=== PATIENT | male | born 1950 | race Caucasian/White ===

== ENCOUNTER → 2023-08-21 07:55 | Outpatient (REF) | payer OTHER, SELFPAY ==
[2023-08-21 09:50] LABS: Free T4 1.47 ng/dl (0.78-2.19)
[2023-08-21 10:04] LABS: TSH 0.44 uIU/ml (0.47-4.68)
== END ==
LOC: REG 07:55
PROVIDERS: ATTENDING PHYSICIAN Internal Medicine Endocrinology, Diabetes & Metabolism; FAMILY PHYSICIAN Registered Nurse
DX: E06.3 Autoimmune thyroiditis (principal)
CPT/HCPCS: 36415; 84439; 84443

== ENCOUNTER → 2023-08-26 07:41 | Outpatient (REF) | payer OTHER, SELFPAY ==
[2023-08-26 08:12] LABS: % Basophils 1.1 % (0-2); % Eosinophils 5.6 % (0-6); % Immature Granulocytes 0.2 % (0-0.5); % Lymphocytes 16.7 % (20.5-51.1); % Monocytes 8.3 % (1.7-9.3); % Neutrophils 68.1 % (42.2-75.2); Absolute Basophils 0.1 10^3/uL (0-0.2); Absolute Eosinophils 0.3 10^3/uL (0-0.7); Absolute Monocytes 0.5 10^3/uL (0.1-0.6); Absolute Neutrophils 3.9 10^3/uL (1.4-6.5); Hematocrit 42.2 % (39.0-52.0); Mean Corp Hgb Conc. 35.5 g/dL (33.0-37.0); Mean Corpuscular Hgb 31.6 pg (27.0-31.0); Mean Corpuscular Volume 88.8 fL (80.0-94.0); Nucleated Red Blood Cells % 0 % (-); Platelet Count 235 10^3/uL (130-400); Red Blood Cell Count 4.75 10^6/uL (4.70-6.10); Red Cell Dist. Width 11.9 % (11.5-14.5); White Blood Cell Count 5.7 10^3/uL (4.8-10.8)
[2023-08-26 08:44] LABS: ALT (SGPT) 19 U/L (0-50); AST (SGOT) 20 U/L (17-59); Albumin 3.6 g/dl (3.5-5.0); Alkaline Phosphatase 52 U/L (38-126); Blood Urea Nitrogen 19 mg/dl (9-20); Calcium 9.4 mg/dl (8.4-10.2); Carbon Dioxide 23 mmol/L (22-30); Chloride 107 mmol/L (98-107); Glucose 99 mg/dl (70-99); HDL Cholesterol 60 mg/dl; LDL Cholesterol, Calculated 62 mg/dl; Potassium 4.2 mmol/L (3.5-5.1); Sodium 140 mmol/L (135-145); Total Bilirubin 1.5 mg/dl (0.2-1.3); Total Cholesterol 140 mg/dl (50-199); Total Protein 6.1 g/dl (6.3-8.2); Triglyceride 90 mg/dl (10-149); Very Low Density Lipoprotein 18 mg/dl (0-30); eGFR > 60.00
[2023-08-26 09:00] LABS: Glycohemoglobin (HgbA1c) 5.7 % (4.0-5.6)
[2023-08-26 09:22] LABS: Vitamin D, 25-OH*** 63.8 ng/mL (30-80)
[2023-08-26 09:36] LABS: TSH Reflex To Free T4 0.67 uIU/ml (0.47-4.68)
[2023-08-26 09:55] LABS: Vitamin B12 368 pg/ml (239-931)
== END ==
LOC: REG 07:41
PROVIDERS: ATTENDING PHYSICIAN Internal Medicine Endocrinology, Diabetes & Metabolism; FAMILY PHYSICIAN Registered Nurse; REFERRING PHYSICIAN Nuclear Medicine Nuclear Cardiology
DX: F03.918 Unspecified dementia, unspecified severity, with other behavioral disturbance (principal); E03.9 Hypothyroidism, unspecified; E78.2 Mixed hyperlipidemia; E55.9 Vitamin D deficiency, unspecified; R73.03 Prediabetes
CPT/HCPCS: 36415; 80053; 80061; 82306; 82607; 83036; 84443; 85025

== ENCOUNTER 2023-11-24 12:36 | Emergency (ER) | payer OTHER, SELFPAY ==
[2023-11-24 12:40] VITALS: BMI 29.1
[2023-11-24 12:41] VITALS: BP 159/80
[2023-11-24 12:57] LABS: % Basophils 0.7 % (0-2); % Eosinophils 3.3 % (0-6); % Immature Granulocytes 0.2 % (0-0.5); % Lymphocytes 18.3 % (20.5-51.1); % Monocytes 6.3 % (1.7-9.3); % Neutrophils 71.2 % (42.2-75.2); Absolute Eosinophils 0.2 10^3/uL (0-0.7); Absolute Lymphocytes 1.1 10^3/uL (1.2-3.4); Absolute Monocytes 0.4 10^3/uL (0.1-0.6); Absolute Neutrophils 4.3 10^3/uL (1.4-6.5); Hematocrit 38.9 % (39.0-52.0); Mean Corpuscular Hgb 32.1 pg (27.0-31.0); Mean Corpuscular Volume 89.2 fL (80.0-94.0); Mean Platelet Volume 8.8 fL (7.4-10.4); Nucleated Red Blood Cells % 0 % (-); Platelet Count 224 10^3/uL (130-400); Red Blood Cell Count 4.36 10^6/uL (4.70-6.10)
[2023-11-24 13:00] VITALS: BP 146/83
[2023-11-24 13:17] LABS: ALT (SGPT) 16 U/L (0-50); AST (SGOT) 18 U/L (17-59); Albumin 3.6 g/dl (3.5-5.0); Alkaline Phosphatase 60 U/L (38-126); Blood Urea Nitrogen 13 mg/dl (9-20); Calcium 8.9 mg/dl (8.4-10.2); Carbon Dioxide 27 mmol/L (22-30); Chloride 108 mmol/L (98-107); Estimated Creatinine Clearance 101 ml/min; Glucose 98 mg/dl (70-99); Potassium 3.9 mmol/L (3.5-5.1); Sodium 137 mmol/L (135-145); Total Bilirubin 1.4 mg/dl (0.2-1.3); Total Protein 6.1 g/dl (6.3-8.2); eGFR > 60.00
[2023-11-24 13:25] LABS: Troponin I < 0.012 ng/ml
--- NOTE | 2023-11-24 13:42 | ED.GENMED ---
History of Present Illness
General
Chief Complaint: Chest Pain
Source: patient, spouse and family
Time Seen by Provider: 11/24/23 13:29
Travel History
Have you had any contact with someone who has COVID-19?: No
Do you have any symptoms of coronavirus? Fever > 100 degrees, chills, cough, shortness of breath, sore throat, loss of taste or smell, muscle aches, or headache?: No
History of Present Illness
History of Present Illness:
73-year-old male with past medical history of dementia, hyperlipidemia, hypothyroidism presenting the ER via EMS with family states that after getting home from [place] patient seemed to be a little bit argumentative with family and is having a
hard time controlling the patient so she contacted EMS. stated patient had been complaining of some chest discomfort and also had mentioned a headache but states that the symptoms are now fully resolved. No medications were given prior to
arrival. Patient is unable to tell me anything about his headache or chest pain here. No known history of cardiac disease. Family is otherwise denying any recent illnesses, change in behavior or any other concerns at this time
Past History
Past History
ED Past Medical History: Hypercholesterolemia, Hypothyroidism and Other (Dementia)
ED Past Surgical History: None
Social History
Tobacco: Former smoker
Alcohol: Occasional
Drug: None
Personal:
Living: with family
Review of Systems
Review of Systems
All Other Systems: ROS reviewed and negative except as documented in HPI and ROS
Phy Exam
Physical Exam
Physical Exam:
GENERAL: Alert , in no apparent distress
EYE: conjunctiva clear
NECK: Supple
ENT: o/p clr, mmm.
CARDIAC: Regular rate and rhythm
LUNGS: Clear breath sounds bilaterally, no acute respiratory distress, no wheezes/rales/rhonchi
Abdomen: Soft, nontender, nondistended
NEUROLOGICAL: Alert and oriented
SKIN: Warm and dry, skin intact.
MUSCULOSKELETAL: well perfused.
PSYCH: Normal and appropriate interaction.
Scores
Heart Failure Risk
Heart Failure Risk Score: Not Applicable
Heart Score for Chest Pain Patients
STEMI patient?: Not applicable
Withdrawal Assessment of Alcohol
Withdrawal Assessment Completed?: Not applicable
Course
Orders/Labs/Results
Orders:
Orders
11/24/23 12:39
Electrocardiogram (*1) Urgent
Reason for Study: Chest Pain
EKG- Treatment ONCE
11/24/23 12:47
Complete Blood Count/With Diff Urgent
Comprehensive Metabolic Panel Urgent
Troponin I Urgent
11/24/23 14:51
Troponin I Urgent
Abnormal Lab Results
11/24/23
12:47
RBC 4.36 L 10^6/uL
(4.70-6.10)
Hct 38.9 L %
(39.0-52.0)
MCH 32.1 H pg
(27.0-31.0)
Absolute Lymphs (auto) 1.1 L 10^3/uL
(1.2-3.4)
Lymphocytes % 18.3 L %
(20.5-51.1)
Chloride 108 H mmol/L
(98-107)
Total Bilirubin 1.4 H mg/dl
(0.2-1.3)
Total Protein 6.1 L g/dl
(6.3-8.2)
11/24/23 12:47
11/24/23 12:47
Vital Signs
Initial and Last Documented VS:
Initial Vital Signs
Temp Pulse Resp Pulse Ox
98 F 60 14 96
11/24/23 12:40 11/24/23 12:40 11/24/23 12:40 11/24/23 12:40
Last Documented Vital Signs
Temp Pulse Resp BP Pulse Ox
98 F 59 9 155/73 97
11/24/23 12:40 11/24/23 14:45 11/24/23 14:45 11/24/23 14:00 11/24/23 14:45
MDM/Problems Addressed
Differential Diagnosis Includes:
Atypical ACS presentation, hypertension, patient and were reportedly having an argument at that time so certainly possible just a reaction from being upset over the argument
MDM/Problems Addressed:
73-year-old male with past medical history of dementia presenting emergency department for evaluation of reported transient headache and chest pain. Patient is laughing and smiling without any concerns at this time. He denies chest pain or
headache. Labs were initiated on arrival and they are all unremarkable. Troponin negative and EKG nonischemic. Given patient's past medical history of dementia and difficult time with history will obtain repeat troponin and if this is within
normal limits patient can be safely discharged home.
*Pulse Oximetry
Patient hypoxic: no
*EKG
Interpreted by ED Provider?: Yes
Comparison EKG: no changes
Heart Rate: 60
Rate: normal
Rhythm: sinus
[place]: left axis deviation
Ischemia: no ischemia
*Crusher Feeder Interpretation
Rate: normal
Rhythm: sinus
*Critical Care Note
Total Time (30-74mins, 75-104mins- exclusive of procedures): Not Applicable
Data Reviewed
Review of Other/Old Records Reveals: Labs and Records
Source: records and spouse
Patient Management
Escalation/DeEscalation of care consider admission/obs:
Repeat troponin negative. Patient remains without any concerns in ED. Stable for d/c home and outpatient follow up. Family aware of return precautions
ED Attending Note
-
Portions of this chart may have been created with voice recognition software.� Occasional wrong word or��sound alike� substitutions may have occurred due to the inherent limitations of voice recognition software.
Discharge Plan
Departure
Patient Disposition: Home (Routine Discharge)
Date of Disposition: 11/24/23
Time of Disposition: 15:36
Patient with high blood pressure during this ER visit?: Yes
Discharge Problem:
Chest pain
Instructions: Dementia ED
Prescriptions:
No Action
levothyroxine 150 MCG tablet
150 mcg PO DAILY
cholecalciferol (vitamin D3) [Vitamin D3] 2,000 UNIT capsule
2,000 unit PO DAILY
Simvastatin
1 tab PO HS
Referrals:
Darvin Ho CRNP [Family Provider] -
Interventions
Interventions:
*Risk Screen - Suicide Last Done: 11/24/23 12:40
*General Assessment Last Done: 11/24/23 12:40
*Neglect/Abuse Screening Last Done: 11/24/23 12:40
ED- Fall Risk Assessment Last Done: 11/24/23 12:44
*ED COVID-19 Vaccine History Last Done: 11/24/23 12:40
ED- Cardiac Assessment Last Done: 11/24/23 12:44
Discharge Date and Time
Print Language: HUNGARIAN
[2023-11-24 14:00] VITALS: BP 155/73
[2023-11-24 15:00] VITALS: BP 151/71
[2023-11-24 15:32] LABS: Troponin I < 0.012 ng/ml
== END 2023-11-24 15:56 | disposition home or self-care (01) ==
LOC: EMR 12:36
PROVIDERS: Physician Assistant Medical; EMERGENCY PHYSICIAN Emergency Medicine; FAMILY PHYSICIAN Registered Nurse
DX: R07.89 Other chest pain (principal); R51.9 Headache, unspecified; R03.0 Elevated blood-pressure reading, without diagnosis of hypertension; F03.90 Unspecified dementia, unspecified severity, without behavioral disturbance, psychotic disturbance, mood disturbance, and anxiety; E78.00 Pure hypercholesterolemia, unspecified; E03.9 Hypothyroidism, unspecified; Z87.891 Personal history of nicotine dependence
CPT/HCPCS: 99283; 80053; 84484; 85025; 93005

== ENCOUNTER 2024-01-31 11:46 | Emergency (ER) | payer OTHER, SELFPAY ==
[2024-01-31 11:50] VITALS: BP 153/79; BMI 30.4
--- NOTE | 2024-01-31 13:21 | ED.GENMED ---
History of Present Illness
General
Chief Complaint: Crisis Evaluation
Source: patient and family
Exam Limitations: dementia
Time Seen by Provider: 01/31/24 12:34
Nursing documentation reviewed up to this point in time: agreed with
History of Present Illness
History of Present Illness:
73 yo male presents to the emergency department after arrival from home via EMS for psychiatric evaluation. Police are investigating him as a suspect in his 's this morning. His son and daughter are present. When questioned about his
medications he does not recall them.
Past History
Past History
ED Past Medical History: Hypercholesterolemia, Hypothyroidism and Other (Dementia)
ED Past Surgical History: None
Social History
Tobacco: Former smoker
Alcohol: Occasional
Drug: None
Personal:
Living: with family
Review of Systems
Review of Systems
Allergies reviewed?: Yes
All Other Systems: Not applicable
Phy Exam
Physical Exam
Physical Exam:
Physical Exam
General: no apparent distress, not acutely ill
Neck: supple. no meningeal signs. normal posterior pharynx
Heart: s1/s2 regular rate and rhythm, no murmur. equal radial
pulses.
HEENT: Pupils equal round reactive to light, EOMI
Lungs: no acute respiratory distress. clear bilaterally
Abdomen: normal bowel sounds. not tender. no CVAT
Neuro: alert and oriented to person but not place or year. no focal neurological deficits cranial nerves II through XII intact
Skin: no rash
Psychiatric: well kept. interactive and cooperative
Extremities: no edema. no calf tenderness. negative homans. good distal pulses
Course
Orders/Labs/Results
Orders:
Orders
01/31/24 13:23
Case Management Consult ONCE
Case Management Consult: Residential Placement
PSYCHIATRY CONSULT Urgent
Consulting Provider: Pat Little
Was physician already notified: Yes
Reason for consult: suspect in 's , dementia, evaluate decision making
Crisis Consult Urgent
Reason for Consult: unable to care for self, suspect in 's
01/31/24 13:37
Complete Blood Count/With Diff Urgent
Comprehensive Metabolic Panel Urgent
TSH Urgent
Comment: TSH ADDED ON BY FLOOR 3:15PM 01-31-24
01/31/24 15:08
TSH Routine
01/31/24 15:13
Add On- LAB Urgent
Tests Added?: TSH routine
Abnormal Lab Results
01/31/24
13:37
RBC 4.23 L 10^6/uL
(4.70-6.10)
Hct 37.5 L %
(39.0-52.0)
MCH 32.2 H pg
(27.0-31.0)
Absolute Lymphs (auto) 1.1 L 10^3/uL
(1.2-3.4)
Lymphocytes % 19.0 L %
(20.5-51.1)
Chloride 109 H mmol/L
(98-107)
Total Bilirubin 1.7 H mg/dl
(0.2-1.3)
01/31/24 13:37
01/31/24 13:37
Vital Signs
Initial and Last Documented VS:
Initial Vital Signs
Temp Pulse Resp BP Pulse Ox
98.4 F 51 16 153/79 98
01/31/24 11:50 01/31/24 11:50 01/31/24 11:50 01/31/24 11:50 01/31/24 11:50
Last Documented Vital Signs
Temp Pulse Resp BP Pulse Ox
98.4 F 51 16 153/79 98
01/31/24 11:50 01/31/24 11:50 01/31/24 11:50 01/31/24 11:50 01/31/24 11:50
MDM/Problems Addressed
Differential Diagnosis Includes:
Dementia
MDM/Problems Addressed:
73-year-old male with dementia, no reason for admission. Patient will be discharged home with family. Case management attempting to find placement.
Chronic conditions affecting care: Other (Dementia)
Acute Exacerbation and/or Progression of Chronic Illness: Other (Dementia)
*Pulse Oximetry
Patient hypoxic: no
*EKG
Interpreted by ED Provider?: NA
*Telephone Repairer Interpretation
Rate: Telephone Repairer- N/A
*Critical Care Note
Total Time (30-74mins, 75-104mins- exclusive of procedures): Not Applicable
Patient Management
Social determinants of health affecting care: Living situation
Discussion with other providers: Script Supervisor (Case management, psychiatry and crisis)
Escalation/DeEscalation of care consider admission/obs:
Admit not indicated
ED Attending Note
-
Portions of this chart may have been created with voice recognition software.� Occasional wrong word or��sound alike� substitutions may have occurred due to the inherent limitations of voice recognition software.
Discharge Plan
Departure
Patient Disposition: Home (Routine Discharge)
Date of Disposition: 01/31/24
Time of Disposition: 15:40
Patient with high blood pressure during this ER visit?: Yes
Condition: Good
Discharge Problem:
Encounter for medical assessment
Prescriptions:
No Action
levothyroxine 150 MCG tablet
150 mcg PO DAILY
cholecalciferol (vitamin D3) [Vitamin D3] 2,000 UNIT capsule
2,000 unit PO DAILY
Simvastatin
1 tab PO HS
Referrals:
Darvin Ho CRNP [Family Provider] - Call in 1-3 days for appt
Interventions
Interventions:
*Risk Screen - Suicide Last Done: 01/31/24 11:50
*General Assessment Last Done: 01/31/24 11:50
*Neglect/Abuse Screening Last Done: 01/31/24 11:50
ED- Fall Risk Assessment Last Done: 01/31/24 12:22
*ED COVID-19 Vaccine History Last Done: 01/31/24 11:50
ED-Psychological Assessment Last Done: 01/31/24 12:22
Discharge Date and Time
Print Language: FAROESE
[2024-01-31 13:45] LABS: % Basophils 0.7 % (0-2); % Immature Granulocytes 0.3 % (0-0.5); Absolute Eosinophils 0.2 10^3/uL (0-0.7); Absolute Lymphocytes 1.1 10^3/uL (1.2-3.4); Absolute Monocytes 0.4 10^3/uL (0.1-0.6); Absolute Neutrophils 4.1 10^3/uL (1.4-6.5); Hematocrit 37.5 % (39.0-52.0); Hemoglobin 13.6 g/dL (13.0-18.0); Mean Corp Hgb Conc. 36.3 g/dL (33.0-37.0); Mean Corpuscular Hgb 32.2 pg (27.0-31.0); Mean Corpuscular Volume 88.7 fL (80.0-94.0); Nucleated Red Blood Cells % 0 % (-); Platelet Count 206 10^3/uL (130-400); Red Blood Cell Count 4.23 10^6/uL (4.70-6.10); Red Cell Dist. Width 12.4 % (11.5-14.5)
[2024-01-31 14:08] LABS: ALT (SGPT) 12 U/L (0-50); AST (SGOT) 23 U/L (17-59); Albumin 3.9 g/dl (3.5-5.0); Alkaline Phosphatase 48 U/L (38-126); Blood Urea Nitrogen 14 mg/dl (9-20); Carbon Dioxide 24 mmol/L (22-30); Chloride 109 mmol/L (98-107); Estimated Creatinine Clearance 110 ml/min; Glucose 84 mg/dl (70-99); Sodium 139 mmol/L (135-145); Total Bilirubin 1.7 mg/dl (0.2-1.3); Total Protein 6.3 g/dl (6.3-8.2); eGFR > 60.00
--- NOTE | 2024-01-31 15:08 | CON.MD ---
Consultation - Medical
-
patient seen chart reviewed. son and daughter present at bedside. discussed w dr mcguire. the patient is a 73 year old man who has been diagnosed w dementia. he was living at home with his , the patient is extremely cognitively impaired and
could give no history. d told me that his called 911 this am and when the police arrived and were banging on the door father thought there was an intruder and initially would not let them in. was found to be . patient's children
were instructed to bring him to the ER for an evaluation. he was also seen by abatement worker who asked polilce if the patient were a suspect in 's murder but no definitive answer was forthcoming. patient's only this am . the patient
's children deny any hx of depression or anxiety but they do verify hx of dementia which was quite apparent. the patient was here in november of this year. at that time alleged that patient had been 'argumentative' and it appears that he was
discharged to home. the patient was also seen here in the er in october of 2022. he apparently was being worked up for hematuria and was seen in the er for a contusion on his wrist. again he was discharged. the patient takes no psychotropic
medications. the patient is oriented to place only. he told me it was winter and could not even guess the year. i asked how many children he had and he pointed to his two children said 'one two three four'. he was unable to tell me how many
grandhildren he had. 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
past medical hx hld hypothyroid dementia. usual meds include simvastatin and synthroid. labs appear unremarkable.
substance abuse denied
family hx non contributory
social hx resided w two kids four grands retired
mse alert but oriented only to place. patient unable to put a sentence together that was relevant. speech relatively nl rate and tone but thought content disorganized and incoherent. no overt psychosis. he was overall pleasant and calm.
insight judgment impaired
dx dementia
recommendations i don't see any acute psych or medical process here. he is not appropriate for psych admit as he is not depressed psychotic or exhibiting behavioral dyscontrol here in the ER although not clear what went on before. no psych meds
recommended at this time as there is no indication of need for acute rx. ordered tsh as he is hypothyroid
--- NOTE | 2024-01-31 15:12 | CM ---
Addendum entered by Leticia Vaughan 01/31/24 15:45:
Patient's daughter decided to take patient home.
Her number is [phone]
Address:
[address] [place] [address]
[place]
Addendum entered by Leticia Vaughan 01/31/24 15:42:
[facility] also said 'no'.
Addendum entered by Leticia Vaughan 01/31/24 15:37:
Textile Engineer's name and number:
Regino Cruz, Textile Engineer
[phone]
24 hr: [phone]
Rightfax: [phone]
Email: [email or web address]
Address:
[facility]
[address] [facility]
[place]
There is also a name written for 'Buck Platt'. No other notes added to the name.
Addendum entered by Leticia Vaughan 01/31/24 15:28:
Dr. Little from Psychiatry, stated that patient is cleared. He does not qualify for [facility]-psych.
So far, the following SNFs have said 'no' to accepting patient's referral:
1. [facility]
2. [facility]
3. [facility]
4. [place] [facility]
5. [facility]
6. [facility] [place]
7. [facility]
Original Note:
CM reviewed chart. Spoke with patient and son and daughter at bedside.
CM explained to son and daughter that because of the events that happened today, patient may possibly be a hard placement. Daughter and son were very surprised and asked CM to clarify what specifically happened today. CM asked son and daughter what
was discussed with them. They stated that 'nothing happened', besides the automatic clipper and stripper taking pictures of their fathers hands and asking a few questions. Daughter stated, 'They even told us that we could come back into the home around 2PM'.
Daughter stated that she just wasn't able to understand why her father couldn't be placed when he is a 'vulnerable man who can't care for himself. I just don't understand why he can't go.'
CM also discussed that there is not a skilled need, currently for patient, and it would have to be paid out of pocket. Daughter and son do not know what their father's financial situation because, per daughter, 'his was in control of all of
that'.
Daughter and son adamantly asked for referrals to be placed, because they do not feel their father would be safe in their home, due to them having small children in both homes.
Referrals placed in [facility].
--- NOTE | 2024-01-31 16:41 | CM ---
Addendum entered by Leticia Vaughan 01/31/24 17:38:
Halley, from [employer], who called about 14 minutes, wanted to know who is patient's POA.
Addendum entered by Leticia Vaughan 01/31/24 17:24:
Thermoforming Machine Operator [employer] Internetworking Technician called CM to clarify some details of patient's report.
Original Note:
CM made a report to [employer] about events, SNF referrals (and denials) and open murder investigation. Also shared safety concerns for patient, due to his hx of dementia.
[2024-01-31 17:53] LABS: TSH 0.97 uIU/ml (0.47-4.68)
== END 2024-01-31 16:00 | disposition home or self-care (01) ==
LOC: EMR 11:46
PROVIDERS: CONSULT PHYSICIAN Psychiatry & Neurology Psychiatry; EMERGENCY PHYSICIAN Emergency Medicine; FAMILY PHYSICIAN Registered Nurse
DX: Z02.79 Encounter for issue of other medical certificate (principal); F03.90 Unspecified dementia, unspecified severity, without behavioral disturbance, psychotic disturbance, mood disturbance, and anxiety; R03.0 Elevated blood-pressure reading, without diagnosis of hypertension; E03.9 Hypothyroidism, unspecified; E78.00 Pure hypercholesterolemia, unspecified; Z87.891 Personal history of nicotine dependence
CPT/HCPCS: 99283; 80053; 84443; 85025

== ENCOUNTER 2024-02-08 06:49 | Emergency (ER) | payer OTHER, SELFPAY ==
[2024-02-08 06:52] VITALS: BP 146/81
[2024-02-08 06:56] VITALS: BMI 29.1
[2024-02-08 06:58] LABS: Glucose - Point of Care 112 mg/dl (70-99)
--- NOTE | 2024-02-08 06:58 | ED.GENMED ---
History of Present Illness
General
Chief Complaint: Change in Mental Status
Source: patient, records, ambulance crew and police
Exam Limitations: dementia
Time Seen by Provider: 02/08/24 06:51
Nursing documentation reviewed up to this point in time: agreed with
History of Present Illness
History of Present Illness:
Patient is a 73-year-old male who presents via EMS and police accompanying them from a local prison after the patient was found in the bed of another patient and refused to get out and then became physically aggressive with staff and EMS.
Patient just arrived at the prison last night and does have a history of dementia and combativeness. Patient was seen here on the after becoming aggressive with police when they tried to get into his house after his to call 911.
Patient is was found to be at the time. Patient was evaluated psychiatrically at that time he was found to be demented but not acutely in need of psychiatric therapy. Patient was noted to be somewhat aggressive. Patient's thyroid was
checked and was normal. Patient essentially has no complaints at this time. Patient does give the history that was relayed by EMS and the police.
Past History
Past History
ED Past Medical History: Hypercholesterolemia, Hypothyroidism and Other (Dementia)
ED Past Surgical History: None
Social History
Tobacco: Former smoker
Alcohol: Occasional
Drug: None
Personal:
Living: with family
Review of Systems
Review of Systems
Unable to obtain full review of systems at this time due to: dementia
Other source history: ambulance crew
All Other Systems: Not applicable
Phy Exam
Physical Exam
Physical Exam:
Physical Exam
General: No apparent distress, alert and appropriate at this time, well nourished, well hydrated
HENT: Normocephalic, supple with no lymphadenopathy, no thyromegaly
Eyes: Clear sclera, conjuctiva without injection
Heart: Regular rhythm and rate. No S3, S4. No murmur. No NVD
Lungs: No respiratory distress, no stridor, lung sounds clear and equal bilaterally, chest wall symmetrical and nontender
Abdomen: Soft, nontender, no organomegaly, no CVA tenderness, BS good
Neuro: Alert and oriented to person, CN II - XII intact, no motor focality
Skin: Scattered superficial ecchymosis
Psychiatric: well kept. interactive and cooperative
Extremities: No edema, cyanosis, tenderness, Good and equal peripheral pulses.
Course
Orders/Labs/Results
Orders:
Orders
02/08/24 07:14
Complete Blood Count/With Diff Urgent
Comprehensive Metabolic Panel Urgent
TSH Reflex To Free T4 Urgent
02/08/24 09:28
Urinalysis Reflex To Culture Urgent
Date Specimen was Collected: 02/08/24
Time Specimen was Collected: 09:25
Urine Microscopic Reflex Cult Urgent
02/08/24 10:38
HydrOXYzine [Vistaril] 50 mg IM NOW STA
Abnormal Lab Results
02/08/24 02/08/24 02/08/24
06:56 07:14 09:28
RBC 4.28 L 10^6/uL
(4.70-6.10)
Hct 38.2 L %
(39.0-52.0)
MCH 31.8 H pg
(27.0-31.0)
Chloride 109 H mmol/L
(98-107)
Glucose 104 H mg/dl
(70-99)
Total Bilirubin 1.7 H mg/dl
(0.2-1.3)
Total Protein 6.1 L g/dl
(6.3-8.2)
Ur Occult Blood Reflex 2+ A
(Negative)
Urine RBC 7-10 A /HPF
(0-2)
POC Glucose 112 H mg/dl
(70-99)
02/08/24 07:14
02/08/24 07:14
Vital Signs
Initial and Last Documented VS:
Initial Vital Signs
Temp Pulse Resp BP Pulse Ox
98.5 F 58 18 146/81 97
02/08/24 06:52 02/08/24 06:52 02/08/24 06:52 02/08/24 06:52 02/08/24 06:52
Last Documented Vital Signs
Temp Pulse Resp BP Pulse Ox
98.5 F 63 15 149/81 97
02/08/24 06:52 02/08/24 08:15 02/08/24 08:15 02/08/24 08:00 02/08/24 08:15
*Radiology
Radiology exam reviewed: other
*Pulse Oximetry
Patient hypoxic: no
*EKG
Interpreted by ED Provider?: NA
*Tool Shaper Setup Operator Interpretation
Rate: Tool Shaper Setup Operator- N/A
*Critical Care Note
Total Time (30-74mins, 75-104mins- exclusive of procedures): Not Applicable
Update Note
Update Note:
Patient's workup is essentially negative. Patient has been placed on Zoloft since the . Find a medication that can be found on a as needed basis for agitation and possibly something better for agitation than an antidepressant.
ED Attending Note
-
Portions of this chart may have been created with voice recognition software.� Occasional wrong word or��sound alike� substitutions may have occurred due to the inherent limitations of voice recognition software.
Discharge Plan
Departure
Patient Disposition: [facility]ci/SNF
Date of Disposition: 02/08/24
Time of Disposition: 10:39
Patient with high blood pressure during this ER visit?: Yes
Condition: Fair
Covid-19: Not Applicable
Discharge Problem:
Agitation due to dementia
Instructions: Dementia (DC), BLOOD PRESSURE
Prescriptions:
New
aripiprazole [Abilify] 2 mg tablet
2 mg PO DAILY Qty: 30 0RF
No Action
levothyroxine 150 MCG tablet
150 mcg PO DAILY
cholecalciferol (vitamin D3) [Vitamin D3] 2,000 UNIT capsule
2,000 unit PO DAILY
Simvastatin
1 tab PO HS
Referrals:
Sammy Whyte I., [Family Provider] - Follow up in 2-3 days
Activity Restrictions/Additional Instructions:
Continue present medications and therapy.
Interventions
Interventions:
*Risk Screen - Suicide Last Done: 02/08/24 06:56
*General Assessment Last Done: 02/08/24 06:53
*Neglect/Abuse Screening Last Done: 02/08/24 06:56
*ED COVID-19 Vaccine History Last Done: 02/08/24 06:53
ED- Neurological Assessment Last Done: 02/08/24 06:56
Discharge Date and Time
Print Language: CITIZ[place]
[2024-02-08 07:00] VITALS: BP 134/78
[2024-02-08 07:32] LABS: % Basophils 0.8 % (0-2); % Eosinophils 5.9 % (0-6); % Immature Granulocytes 0.2 % (0-0.5); % Lymphocytes 21.9 % (20.5-51.1); % Monocytes 7.4 % (1.7-9.3); % Neutrophils 63.8 % (42.2-75.2); Absolute Basophils 0.1 10^3/uL (0-0.2); Absolute Eosinophils 0.4 10^3/uL (0-0.7); Absolute Lymphocytes 1.3 10^3/uL (1.2-3.4); Absolute Monocytes 0.4 10^3/uL (0.1-0.6); Absolute Neutrophils 3.8 10^3/uL (1.4-6.5); Hematocrit 38.2 % (39.0-52.0); Hemoglobin 13.6 g/dL (13.0-18.0); Mean Corp Hgb Conc. 35.6 g/dL (33.0-37.0); Mean Corpuscular Hgb 31.8 pg (27.0-31.0); Mean Corpuscular Volume 89.3 fL (80.0-94.0); Mean Platelet Volume 9.4 fL (7.4-10.4); Nucleated Red Blood Cells % 0 % (-); Platelet Count 227 10^3/uL (130-400); Red Blood Cell Count 4.28 10^6/uL (4.70-6.10); Red Cell Dist. Width 12.4 % (11.5-14.5)
[2024-02-08 07:38] LABS: ALT (SGPT) 16 U/L (0-50); AST (SGOT) 20 U/L (17-59); Albumin 3.8 g/dl (3.5-5.0); Alkaline Phosphatase 53 U/L (38-126); Blood Urea Nitrogen 15 mg/dl (9-20); Calcium 9.3 mg/dl (8.4-10.2); Carbon Dioxide 25 mmol/L (22-30); Chloride 109 mmol/L (98-107); Estimated Creatinine Clearance 89 ml/min; Glucose 104 mg/dl (70-99); Potassium 3.9 mmol/L (3.5-5.1); Sodium 140 mmol/L (135-145); Total Bilirubin 1.7 mg/dl (0.2-1.3); Total Protein 6.1 g/dl (6.3-8.2); eGFR > 60.00
[2024-02-08 08:00] VITALS: BP 149/81
[2024-02-08 08:09] LABS: TSH Reflex To Free T4 4.01 uIU/ml (0.47-4.68)
[2024-02-08 09:36] LABS: Urine Albumin Negative (Neg - Trace); Urine Bilirubin Negative (Negative); Urine Character Clear (Clear); Urine Color Yellow; Urine Glucose Negative (Negative); Urine Ketone Negative (Negative); Urine Leukocyte Negative (Negative); Urine Nitrite Negative (Negative); Urine Occult Blood 2+ (Negative); Urine Urobilinogen 1+ (Neg - 1+)
[2024-02-08 09:55] LABS: Urine White Cell 0-2 /HPF (0-5)
[2024-02-08] MEDS: VISTARIL 50 MG IM (10:55)
== END 2024-02-08 13:10 ==
LOC: EMR 06:49
PROVIDERS: EMERGENCY PHYSICIAN Emergency Medicine; FAMILY PHYSICIAN Internal Medicine
DX: R41.82 Altered mental status, unspecified (principal); F03.911 Unspecified dementia, unspecified severity, with agitation
CPT/HCPCS: 99285; 96372; 80053; 81003; 81015; 82962; 84443; 85025

== ENCOUNTER 2024-02-08 20:16 | Emergency (ER) | payer OTHER, SELFPAY ==
[2024-02-08] MEDS: HALDOL 5 MG IM (20:29)
[2024-02-08] MEDS: VERSED 3 MG IM (20:30)
[2024-02-08 20:49] LABS: % Basophils 0.6 % (0-2); % Eosinophils 3.1 % (0-6); % Immature Granulocytes 0.2 % (0-0.5); % Lymphocytes 17.9 % (20.5-51.1); % Monocytes 8.7 % (1.7-9.3); % Neutrophils 69.5 % (42.2-75.2); Absolute Basophils 0.1 10^3/uL (0-0.2); Absolute Eosinophils 0.3 10^3/uL (0-0.7); Absolute Lymphocytes 1.5 10^3/uL (1.2-3.4); Absolute Monocytes 0.7 10^3/uL (0.1-0.6); Absolute Neutrophils 5.9 10^3/uL (1.4-6.5); Hematocrit 39.5 % (39.0-52.0); Hemoglobin 14.1 g/dL (13.0-18.0); Mean Corp Hgb Conc. 35.7 g/dL (33.0-37.0); Mean Corpuscular Volume 89.8 fL (80.0-94.0); Mean Platelet Volume 9.3 fL (7.4-10.4); Nucleated Red Blood Cells % 0 % (-); Platelet Count 267 10^3/uL (130-400); Red Cell Dist. Width 12.5 % (11.5-14.5); White Blood Cell Count 8.5 10^3/uL (4.8-10.8)
[2024-02-08 20:55] VITALS: BP 120/60
[2024-02-08 21:17] LABS: ALT (SGPT) 17 U/L (0-50); AST (SGOT) 26 U/L (17-59); Acetaminophen < 10 ug/ml (10-30); Albumin 4.1 g/dl (3.5-5.0); Alkaline Phosphatase 56 U/L (38-126); Blood Urea Nitrogen 19 mg/dl (9-20); Calcium 9.4 mg/dl (8.4-10.2); Carbon Dioxide 28 mmol/L (22-30); Chloride 107 mmol/L (98-107); Glucose 108 mg/dl (70-99); Potassium 3.9 mmol/L (3.5-5.1); Sodium 141 mmol/L (135-145); Total Bilirubin 1.9 mg/dl (0.2-1.3); Total Protein 6.5 g/dl (6.3-8.2); eGFR > 60.00
[2024-02-08 21:19] LABS: Alcohol None Detected
[2024-02-08 21:26] LABS: Salicylate < 1.0 mg/dl (2.0-20.0)
--- NOTE | 2024-02-08 21:34 | ED.GENMED ---
History of Present Illness
General
Chief Complaint: Crisis Evaluation
Source: patient, records, ambulance crew, custodial and previous hospital records
Exam Limitations: dementia
Time Seen by Provider: 02/08/24 20:25
Nursing documentation reviewed up to this point in time: agreed with
History of Present Illness
History of Present Illness:
73-year-old male with a past medical history of hypothyroidism and dementia who presents to the emergency room from [facility] via EMS for violent behavior. This is a very challenging case as patient has significant dementia, very limited
insight and very poor historian. He is very agitated and aggressive and exhibiting violent behavior level and so history is even more so limited from him. He was seen in this emergency room 01/31/2024t that time he was referred for evaluation
after being found with his ; per EMS report there was apparently report that he may have been involved in her . He was seen by psychiatry ultimately behavior was thought to be related to his dementia and he was ultimately
discharged. He was sent back to the emergency room this morning arrived via EMS and police after he was found in bed next to a another custodial resident and refused to get out of bed. He offers no complaint this morning and was started on
Abilify and discharged back to custodial. According to custodial and EMS report this evening he became acutely aggressive at the custodial. Per EMS when they arrived on the scene he was witnessed to be following the nurses into their
private nursing station and was cornering them and punching, attacking them. EMS reported that they had to pull patient away from the nursing staff and that he began attempting to punch, spit on and kick EMS. They were able to restrain him and
brought him into the hospital.
Past History
Past History
ED Past Medical History: Hypercholesterolemia, Hypothyroidism and Other (Dementia)
ED Past Surgical History: None
Social History
Tobacco: Former smoker
Alcohol: Occasional
Drug: None
Personal:
Living: with family
Review of Systems
Review of Systems
Unable to obtain full review of systems at this time due to: dementia
All Other Systems: Not applicable
Phy Exam
Physical Exam
Physical Exam:
General: Awake, alert, oriented x 1 and acutely agitated, spitting on people and swinging at security staff�he is not redirectable
Head: Normocephalic, atraumatic
Eyes: Conjunctiva normal, pupils equal round and reactive to light bilateral
Throat: Airway intact, handling secretions
Neck: Trachea midline
Lungs: Clear to auscultation bilaterally, no wheezing, rales, rhonchi
Heart: Regular rate and rhythm, no murmurs, gallops, or rubs
Abd: Soft, non distended, no masses
Neuro: No gross focal defect, moving all extremities equally with no deficit
Skin: no rash
Extremities: Atraumatic, no edema, warm well-perfused
Scores
Heart Failure Risk
Heart Failure Risk Score: Not Applicable
Heart Score for Chest Pain Patients
STEMI patient?: Not applicable
Withdrawal Assessment of Alcohol
Withdrawal Assessment Completed?: Not applicable
Course
Orders/Labs/Results
Orders:
Orders
02/08/24 20:25
Haloperidol Lactate [Haldol] 5 mg IM NOW STA
Midazolam HCl [Versed] 3 mg IM NOW STA
02/08/24 20:37
Electrocardiogram (*1) Urgent
Reason for Study: QTc Monitoring
Crisis Consult Routine
Reason for Consult: violent behavior
EKG- Treatment ONCE
Drug Screen, Urine [Urine Drug Abuse Screen] Urgent
Urinalysis Reflex To Culture Urgent
02/08/24 20:38
Acetaminophen Urgent
Alcohol Urgent
Complete Blood Count/With Diff Urgent
Comprehensive Metabolic Panel Urgent
Salicylate Urgent
02/08/24 21:24
COVID-19 Antigen Urgent
Source: Nasal Swab
02/08/24 21:26
Restraints - Violent As Directed
Restraint Type-: Locked-4 point/4 rails
Apply From (date): 02/08/24
Apply from (time): 20:23
Remove (date): 02/09/24
Remove (time): 00:23
02/08/24 21:48
PSYCHIATRY CONSULT Urgent
Consulting Provider: William Miller
Was physician already notified: Yes
Midazolam HCl [Versed] 1 mg IV NOW STA
Abnormal Lab Results
02/08/24
20:38
RBC 4.40 L 10^6/uL
(4.70-6.10)
MCH 32.0 H pg
(27.0-31.0)
Absolute Monos (auto) 0.7 H 10^3/uL
(0.1-0.6)
Lymphocytes % 17.9 L %
(20.5-51.1)
Glucose 108 H mg/dl
(70-99)
Total Bilirubin 1.9 H mg/dl
(0.2-1.3)
Salicylates < 1.0 L mg/dl
(2.0-20.0)
Acetaminophen < 10 L ug/ml
(10-30)
02/08/24 20:38
02/08/24 20:38
Vital Signs
Initial and Last Documented VS:
Initial Vital Signs
Temp Pulse Resp BP Pulse Ox
36.8 C 66 18 120/60 91
02/08/24 20:55 02/08/24 20:55 02/08/24 20:55 02/08/24 20:55 02/08/24 20:55
Last Documented Vital Signs
Temp Pulse Resp BP Pulse Ox
36.8 C 66 18 120/60 91
02/08/24 20:55 02/08/24 20:55 02/08/24 20:55 02/08/24 20:55 02/08/24 20:55
MDM/Problems Addressed
Differential Diagnosis Includes:
Agitated delirium, psychosis, behavioral issue
MDM/Problems Addressed:
73-year-old male with history of dementia presents from custodial for violent and aggressive behavior as described above. He arrives acutely agitated and violent and is not redirectable. Was placed in restraints for staff and patient's safety.
Will sedate with Versed and Haldol. Will place IV and send basic screening lab work. Check an EKG for QTc monitoring. Difficult case as likely his dementia is driving his behavior rather than a psychiatric issue. Unclear whether inpatient
psychiatric treatment would benefit him. Will need to hold here for now�he is not safe for discharge as he clearly has poor insight and does not have decision-making capacity and is obviously danger to others and likely himself as well�will have
psychiatry evaluate; I also discussed with crisis to perform an assessment.
Lab work reviewed and no clinically significant abnormalities noted. Case was discussed with psychiatry to evaluate. Will hold here, sedation as needed for agitation and violence. Case management consulted as well to be involved in his
disposition planning.
Chronic conditions affecting care:
Dementia
*Pulse Oximetry
Patient hypoxic: no
*EKG
Interpreted by ED Provider?: Yes
Heart Rate: 60
Rate: normal
Rhythm: sinus
[place]: left axis deviation
Interval: normal interval
QRS Pattern: normal QRS
Ischemia: no ischemia
*Critical Care Note
Total Time (30-74mins, 75-104mins- exclusive of procedures): Not Applicable
Data Reviewed
Review of Other/Old Records Reveals: Labs and Records
Source: patient, records, ambulance crew and custodial
Patient Management
Discussion with other providers: residential staff (Discussed with custodial) and Other (Discussed with crisis)
ED Attending Note
-
Portions of this chart may have been created with voice recognition software.� Occasional wrong word or��sound alike� substitutions may have occurred due to the inherent limitations of voice recognition software.
Discharge Plan
Departure
Patient Status:: Psych
Discharge Problem:
Violent behavior, Agitation due to dementia
Prescriptions:
No Action
levothyroxine 150 MCG tablet
150 mcg PO DAILY
cholecalciferol (vitamin D3) [Vitamin D3] 2,000 UNIT capsule
2,000 unit PO DAILY
Simvastatin
1 tab PO HS
aripiprazole [Abilify] 2 mg tablet
2 mg PO DAILY Qty: 30 0RF
Interventions
Interventions:
*Risk Screen - Suicide Last Done: 02/08/24 20:57
*General Assessment Last Done: 02/08/24 20:57
*Neglect/Abuse Screening Last Done: 02/08/24 20:57
*ED COVID-19 Vaccine History Last Done: 02/08/24 20:57
ED-Psychological Assessment Last Done: 02/08/24 20:57
Discharge Date and Time
Print Language: TURKISH
[2024-02-08 21:45] LABS: COVID-19 Antigen Negative (Negative)
[2024-02-08] MEDS: VERSED 1 MG IV (21:53)
[2024-02-08 22:32] VITALS: BP 114/59
[2024-02-09 07:17] VITALS: BP 121/74
--- NOTE | 2024-02-09 10:00 | CS.PSYCHR ---
Consult Summary - Psychiatry
-
Pt is 73 yo male brought to ED via EMS from a local assisted due to dementia and aggressive behavior. Pt reportedly found in the bed of another patient and refused to get out; reportedly physically aggressive with staff and EMS. Pt was seen
here on 01/30 after pt's was found in the home after she reportedly had earlier called 911. Patient was evaluated by Psychiatry at that time in the ED, found to have severe dementia but no other treatable psychiatric condition. Pt has
been unable to provide any history due to dementia. This admission, a 302 petition was denied due to pt's dx of dementia per Crisis staff. Pt seen, trying to make his bed/stretcher. Pt pacing, mildly agitated, unable to answer questions or give
any history. He asked to talk to his mother and his son, mentioned his . Pt shows no signs of psychosis, denies feeling depressed. Pt stated he does not want breakfast. Pt was given Haldol 5 mg IM and Versed total 4 mg IM last
night. No EPS evident. QTc 462 on 02/07; was 438 on 11/24/23.
Psych Hx: none noted, except dementia. No record of prior treatment/medications, except reportedly started on Sertraline last week. Noted with allergy to Aricept and Namenda. Had Psychiatry consult 01/31/24 at
[facility]: HLD, Hypothyroidism, dementia
SH: resided with , who last week. Pt reportedly suspected in her . Pt retired, has 2 adult children, 4 grandchildren
MSE: alert, pacing around, disoriented, sensorium appears intact. Pt unable to answer questions or give any meaningful information due to apparent dementia. Mildly agitated. Affect neutral, denies feeling depressed. No overt signs of
hallucinations or delusions.
Insight appears impaired.
Imp: Dementia, progressive, with aggressive behavior
Rec: would try Zyprexa 2.5 to 5 mg as needed for any further agitation/aggression, can use IM if po is refused.
There is no clear disposition option at present due to pt's presentation/behavior, potential legal issues. Crisis staff will try to get more family information, explore if pt has POA, given his apparent lack of capacity for decisions.
will follow
[2024-02-09] MEDS: ZYPREXA ZYDIS (ORALLY DISINTEGRATING) 2.5 MG PO ×3 (11:31→19:54)
[2024-02-09] MEDS: VISTARIL 50 MG IM (12:33)
--- NOTE | 2024-02-09 15:48 | CM ---
CM following re: d/c planning.
Pt presents from [place],
He presents with agitation, aggression, violent behaviors.
Psych is on board; behaviors attributed to dementia.
CM spoke with nursing and crisis.
No plans for nga psych at this time.
Call placed to Esmer @ admissions at [facility], prompted to leave .
Psych working on medication management.
CM continuing to follow re: d/c planning.
Goal: med regimen, return to [facility] if they can accept.
--- NOTE | 2024-02-09 15:52 | EDRN ---
PRN chandni admin as documented. Pt was trying doors again, had crossed line on floor that cooper a boundary for security. Dr Garcia notified Security expressed concern about safety. Dr Garcia spoke with them and pt and nursing staff
regarding plan of care in an effort not to physically restrain pt unless necessary which at this time it is not. Charge nurse notified of request for a sitter to accompany [facility] Security. meat curer Jai to bedside.
[2024-02-09 20:00] VITALS: BP 133/65
[2024-02-09] MEDS: SAPHRIS 10 MG SL (20:18)
[2024-02-10] MEDS: ZYPREXA 5 MG IM ×2 (02:24→18:20)
[2024-02-10] MEDS: STERILE WATER FOR INJECTION 2.1 ML IM ×2 (02:24→18:20)
--- NOTE | 2024-02-10 02:29 | EDRN ---
Pt getting off of stretcher. Pt offered food, toileting, blankets, reading and refused. Attempted to redirect pt about time and place but unable to redirect. Pt trying to cross security lines and began raising voice with staff. Attempted to direct
pt back to stretcher to get some rest or to sit in chair. Pt agreeable to sit in chair but quickly became agitated with staff. Pt stood up and began yelling at staff. Pt assisted back to stretcher and PRN Zyprexa given -- pt refusing PO see SEP. Pt
rested on stretcher for a minute and then proceeded to stand up off of stretcher, yell at security and became physically aggressive with staff members. Dr. Mirza notified. Soft limb restraints put in place. Attempted to orient pt to POC and situation
but not able to orient or redirect. Safe environment maintained. Security at bedside. 1:[address] per violent restraints -- see worklist.
[2024-02-10] MEDS: ATIVAN 1 MG IM ×2 (03:38→12:46)
--- NOTE | 2024-02-10 07:03 | ED.CRISIS ---
ED Crisis Note
ED Crisis Note
Subjective:
Violent, aggressive behavior
Assessment/Plan:
Patient is sleeping comfortably in 4 point soft restraints. When patient wakes up, we will offer him breakfast. We are still waiting for psychiatric placement
[2024-02-10] MEDS: ZYPREXA ZYDIS (ORALLY DISINTEGRATING) 2.5 MG PO (09:11)
[2024-02-10 09:15] VITALS: BP 153/72
--- NOTE | 2024-02-10 10:43 | CM ---
Addendum entered by [employer] Systemstoña 02/10/24 16:18:
[facility] nursing report: [phone].
Addendum entered by SafetyCulturestephanie 02/10/24 16:12:
CM met with pt's son Chavo. Copt of POA obtained and left with and faxred to [facility]
Crisis completed 201, signed by son. Crisis to fax 201 to [facility]. Darío obtained an auth for inpatient psychiatric level of care at [facility] from [facility] for 8 initial days.
UC to arrange transportation BLS with Acute care ambulance. PMNC completed and left with . Acute care transportation engineering technician is aware and she will obtain an ambulance auth from [facility].
D/C plan: [facility] inpatient Geriatric psychiatric unit.
Addendum entered by Kaden ACHICAbeto 02/10/24 14:24:
CM spoke to [facility] liaison and he confirmed pt will be accepted for admissions to [facility] when a copy of POA is available, 201 signed
Chest x-ray result with CT of the head need to be faxed to [facility].
An auth for inpatient psychiatric level of care at [facility] must be obtained from [facility]. Ambulance auth needs to be obtained from [facility]
Accepting physician: Patricia Vee
D/C plan: [facility] inpatient Geriatric psychiatric unit.
Addendum entered by [employer] Analyticsbeto 02/10/24 12:01:
CM met with Crisis team and they are working on placement the pt to inpatient geriatric psychiatric unit.
Original Note:
CM following re: discharge planning.
CM consulted to assist pt with discharge planning from ED.
Reviewed pt's chart.
CM spoke to pt's daughter Effie and son Remi. per daughter and son, pt used to live with his 3d in an apartment and his last Saturday. Pt has daughter Effie and son remi. Son Remi has POA and pt's son will come here
around 3:00 p.m. to sign 201 form and he will Email POA. Pt's son described the pt as independent in all areas [employer], has been diagnosed with Dementia 2 years ago and his spouse was able to manage him at home till she . Per son, he and his
sister brought their father to their house and were not able to care for him and pt was placed to [facility] where he was just one day.
Crisis SW notes noted. [facility] will not be able to accept the pt back due to his aggressive behavior.
Both pt's son KIANA and daughter agree with getting the pt to inpatient Geriatric psychiatric hospital to adjust medications and to improve mood and behaviors. A referral to [facility] made, case discussed in details with [facility] liaison.
Pt's on stated that pt has financial resources to afford living in a memory care facility and he and his sister Effie are working on it.
D/C plan: [facility] inpatient Geriatric unit. Awaiting for determination.
CM will follow to assist pt with discharge to [facility].
--- NOTE | 2024-02-10 14:34 | W.PN.UPDATE ---
Update Note
Progress Note Update
Pt seen this morning, resting on stretcher in soft restraints, one leg free. Pt awake when approached, talking in rambling fashion, not able to give any coherent information due to progressive dementia. Pt appears a little more confused this am
after receiving Zyprexa, Saphris, Ativan overnight due to agitation/aggression toward security staff. No EPS evident. Reviewed with Crisis staff, who are trying to find inpatient nga-psych facility that might accept the pt, but no responses,
placement very unlikely due to documented aggressive behavior.
Imp: Dementia, progressive, with aggressive behavior. Pt does not present any other psychiatric symptoms
Rec: continue Zyprexa routine and prn for agitation/aggression. Crisis will continue effort at psychiatric inpatient placement, although unlikely to find accepting facility
will follow
== END 2024-02-10 19:17 ==
LOC: EMR 20:16
PROVIDERS: CONSULT PHYSICIAN Psychiatry & Neurology Psychiatry; EMERGENCY PHYSICIAN Emergency Medicine
DX: F03.92 Unspecified dementia, unspecified severity, with psychotic disturbance (principal); F03.911 Unspecified dementia, unspecified severity, with agitation; E03.9 Hypothyroidism, unspecified; R45.6 Violent behavior; Z20.822 Contact with and (suspected) exposure to COVID-19
CPT/HCPCS: 99285; 96374; 96372 ×7; 70450; 71045; 80053; 80143; 80179; 82077; 85025; 87811; 93005; J2358